=== PATIENT | female | born 2000 | race Caucasian/White ===

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

== ENCOUNTER 2020-05-07 05:20 | Emergency (ER) | payer BC ==
[2020-05-07] MEDS ORDERED: Pantoprazole 40 MG VIAL ONE (06:12)
[2020-05-07] MEDS ORDERED: Ondansetron PF 4 MG/2 ML Vial ONE (06:12)
[2020-05-07] MEDS ORDERED: Dexamethasone 10 MG/ML VIAL ONE (06:12)
[2020-05-07] MEDS ORDERED: Fentanyl 100 MCG/2 ML VIAL ONE (06:12)
[2020-05-07] MEDS ORDERED: Sodium Chloride 0.9% 100 ML ONE (06:13)
[2020-05-07] MEDS ORDERED: cefTRIAXone\\ROCEPHIN 1 GM VIAL ONE (06:14)
[2020-05-07] MEDS ORDERED: Sodium Chloride 0.9% 500 ML BAG ONE (06:55)
== END 2020-05-07 08:05 | disposition home or self-care (01) ==
LOC: MADERS 05:20
DX: J95.89 Other postprocedural complications and disorders of respiratory system, not elsewhere classified (principal); J02.9 Acute pharyngitis, unspecified; E03.9 Hypothyroidism, unspecified; G40.909 Epilepsy, unspecified, not intractable, without status epilepticus; Z79.899 Other long term (current) drug therapy
CPT/HCPCS: 96365; 96367; 96375; C9113; J0696; J1100; J2405; J3010; J3490; J7030